=== PATIENT | female | born 2005 | race Two or more races ===

== ENCOUNTER 2025-03-10 22:30 | Emergency (ER) | payer MEDICAID, OTHER ==
[~2025-03-10] VITALS: Ht 165.1 cm; Wt 91.3 kg
--- NOTE | 2025-03-10 23:04 | ED.PDOC ---
History of Present Illness HPI Comments 20-year-old female who came to ER for abdominal pain. Patient is a approximately 15 weeks , about an hour ago, while sitting in the car, she developed sudden onset left lower quadrant abdominal pain, nonradiating. Denies any vaginal bleeding, nausea or vomiting. States last bowel movement was yesterday REVIEW OF SYSTEMS: General: No fever, no chills, or fatigue HEENT: No sore throat, no earache, no congestion, no neck pain. Cardiac: No chest pain. No palpitations. Lungs: No shortness of breath, no cough. GI: No nausea, no vomiting, no diarrhea, no constipation, (+) abdominal pain : No dysuria, frequency, or urgency. No hematuria. Musculoskeletal: No joint pain , no joint swelling, no extremity edema. Skin: No rash, no itching. Neuro: No headache, no dizziness, no weakness EXAM: General: Awake, alert and oriented. No acute distress. Skin: Skin in warm, dry and intact. Appropriate color for ethnicity. HEENT: The head is normocephalic and atraumatic. Conjunctivae are clear without exudates or hemorrhage. Sclera is non-icteric. EOM are intact. No signs of nystagmus. Eyelids are normal in appearance without swelling or lesions. Oral mucosa is pink and moist Neck: The neck is supple with normal range of motion. No JVD. Cardiac: Heart rate and rhythm are normal. No murmurs, gallops, or rubs are auscultated. Respiratory: No signs of respiratory distress. Lung sounds are clear in all lobes bilaterally without rales, rhonchi, or wheezes. Abdominal: Abdomen is soft, left lower quadrant tenderness without distention. No CVA tenderness Extremities: Upper and lower extremities are atraumatic in appearance without deformity or edema. Neurological: The patient is awake, alert and oriented to person, place, and time with normal speech. Speech is clear. There is no facial asymmetry. Normal gait Psychiatric: Appropriate mood and affect. 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 Was a procedure done?: No Differential Dx Considerations may include: Urinary tract infection, kidney stone, colitis, diverticulitis, enteritis, constipation, Also ruptured ectopic , ovarian torsion/cyst, tubo- ovarian abscess, PID, other X-Ray, Labs, Meds, VS Vital Signs Date Time Temp Pulse Resp B/P (MAP) Pulse Ox O2 Delivery O2 Flow Rate FiO2 03/10/25 23:32 110 16 98 Room Air 03/10/25 23:32 97.8 110 16 108/73 (85) 98 97.8 03/10/25 22:32 97.9 105 18 115/73 97 97.9 Lab Test 03/10/25 23:30 03/10/25 23:06 Range/Units Urine Color Light-yellow Yellow Urine Clarity Clear Clear Urine pH 6.0 5.0-9.0 Urine Specific [place] 1.013 1.001-1.035 Urine Protein Negative Negative Urine Ketones Negative Negative Urine Blood Negative Negative /uL Urine Nitrite Negative Negative Urine Bilirubin Negative Negative Urine Urobilinogen Normal Negative mg/dL Urine Leukocyte Esterase Negative Negative /uL Urine RBC 2 0 - 4 /hpf Urine Microscopic WBC 3 0-5 /HPF Urine Squamous Epithelial Cells Few <5 /hpf Urine Bacteria None seen None Seen /hpf Urine Glucose Normal Normal mg/dL Urine Test Positive Negative White Blood Count 11.5 H 4.4-10.8 10^3/uL Red Blood Count 3.97 L 4.0-5.20 10^6/uL Hemoglobin 11.5 L 12.2-16.2 g/dL Hematocrit 34.7 L 36.0-46.0 % Mean Corpuscular Volume 87.6 80.0-100.0 fL Mean Corpuscular Hemoglobin 29.1 28.0-32.0 pg Mean Corpuscular Hemoglobin Concent 33.2 32.0-36.0 g/dL Red Cell Distribution Width 13.7 11.8-14.3 % Platelet Count 334 140-450 10^3/uL Mean Platelet Volume 7.6 6.9-10.8 fL Neutrophils (%) (Auto) 72.7 37.0-80.0 % Lymphocytes (%) (Auto) 19.9 10.0-50.0 % Monocytes (%) (Auto) 6.3 0.0-12.0 % Eosinophils (%) (Auto) 0.8 0.0-7.0 % Basophils (%) (Auto) 0.3 0.0-2.0 % Neutrophils # (Auto) 8.3 1.6-8.6 10 ^3/uL Lymphocytes # (Auto) 2.3 0.4-5.4 10 ^3/uL Monocytes # (Auto) 0.7 0-1.3 10 ^3/uL Eosinophils # (Auto) 0.1 0-0.8 10 ^3/uL Basophils # (Auto) 0 0-0.2 10 ^3/uL Nucleated Red Blood Cells 0.0 % Sodium Level 136 136-145 mmol/L Potassium Level 4.5 3.5-5.1 mmol/L Chloride Level 103 98-107 mmol/L Carbon Dioxide Level 24 20-31 mmol/L Anion Gap 9 5-15 Blood Urea Nitrogen < 5 L 9-23 mg/dL Creatinine 0.58 0.550-1.02 mg/dL Glomerular Filtration Rate Calc 131 >90 mL/min BUN/Creatinine Ratio 8.6 L 10.0-20.0 Serum Glucose 105 74-106 mg/dL Calcium Level 9.7 8.7-10.4 mg/dL Current Medications Medications (Trade) Dose Ordered Sig/Luc Route Start Time Stop Time Status Last Admin Acetaminophen (Tylenol Tablet Or Capsule) 1,000 mg ONCE ONCE PO 03/10/25 23:15 03/10/25 23:16 DC 03/10/25 23:31 Time of 1ST Reevaluation: 23:01 Reevaluation 1ST: Unchanged Patient Education/Counseling: Need For Follow Up Family Education/Counseling: No Family Present SEPSIS Sepsis Screen Date sepsis recognized/suspect: Mar 10, 2025 Time Sepsis recognized/suspect: 2233 Recent Procedure: No On Antibiotic Therapy: No Respiratory Rate >20: No Heart Rate >90: Yes Temp<36 C (96.8 F) or >38.3 C: No SBP <90 or MAP <65 mmHG: No New Acute Mental Status Change: No Is the patient on CPAP, BIPAP,: No Vital Signs Date Time Temp Pulse Resp B/P (MAP) Pulse Ox O2 Delivery O2 Flow Rate FiO2 03/10/25 23:32 110 16 98 Room Air 03/10/25 23:32 97.8 110 16 108/73 (85) 98 97.8 03/10/25 22:32 97.9 105 18 115/73 97 97.9 Laboratory Tests Test 03/10/25 23:06 White Blood Count 11.5 10^3/uL (4.4-10.8) H Medications Medications Dose Ordered Sig/Luc Route Start Time Stop Time Status Last Admin Dose Admin Acetaminophen 1,000 mg ONCE ONCE PO 03/10/25 23:15 03/10/25 23:16 DC 03/10/25 23:31 Departure 1 Departure Time of Disposition: 01:39 Impression: Primary Impression: Eloped from emergency department Additional Impressions: Left lower quadrant pain Pelvic pain during Disposition: 07 LEFT AWOL/ELOPED Condition: Stable Comments Patient was seen and evaluated in the emergency department. Plan of care and workup discussed with the patient. She eloped from the emergency department prior to completing workup. Critical Care Note Critical Care Time?: No Stability Stability form required: No Heart Score Heart Score: Heart Score Response (Comments) Value History N/A 0 EKG N/A 0 Age N/A 0 Risk Factors N/A 0 Troponin N/A 0 Total 0 I personally scribed for LUIS GRESHAM MD ([email or web address]) on 03/10/25 at 23:04. Electronically submitted by Kendall Jernigan ([email or web address]). LUIS GRESHAM MD Mar 10, 2025 23:04
[2025-03-10 23:22] LABS: Hematocrit 34.7 % (36.0-46.0); Hemoglobin 11.5 g/dL (12.2-16.2); Mean Corpuscular Hemoglobin 29.1 pg (28.0-32.0); Mean Corpuscular Volume 87.6 fL (80.0-100.0); Nucleated Red Blood Cells % 0.0 %
[2025-03-10 23:24] LABS: Chloride 103 mmol/L (98-107); Potassium 4.5 mmol/L (3.5-5.1)
[2025-03-10 23:25] LABS: Anion Gap 9 (5-15); Calcium 9.7 mg/dL (8.7-10.4); Carbon Dioxide 24 mmol/L (20-31)
[2025-03-10 23:28] LABS: Sodium 136 mmol/L (136-145)
[2025-03-10 23:30] LABS: BUN/Creatinine Ratio 8.6 (10.0-20.0); Blood Urea Nitrogen < 5 mg/dL (9-23); Glucose 105 mg/dL (74-106)
[2025-03-10] MEDS: ACETAMINOPHEN 500 MG TAB or CAP PO ONE (23:31)
[2025-03-10 23:32] VITALS: BP 108/73; PULSE 110; RESP 16; TEMP 97.8; O2SAT 98
[2025-03-10 23:42] LABS: Urine Protein, UAD Negative (Negative)
== END 2025-03-11 01:39 | disposition left against medical advice (07) ==
LOC: ER 22:30
DX: O26.892 Other specified pregnancy related conditions, second trimester (principal); R10.31 Right lower quadrant pain; R10.20 Pelvic and perineal pain unspecified side; Z3A.15 15 weeks gestation of pregnancy
CPT/HCPCS: 36415; 80048; 81001; 81025; 85025